=== PATIENT | male | born 1990 ===

== ENCOUNTER 2017-05-07 20:16 | Observation (INO) | payer OTHER ==
[2017-05-07] MEDS ORDERED: Sodium Chloride 0.9% 1,000 ML IV STA (20:34)
[2017-05-07] MEDS ORDERED: HYDROmorphone 0.5 mg/0.5 ml ISec IVP STA (20:34)
--- NOTE | 2017-05-07 20:39 | ED PDOC ---
Arrival/HPI - General Chief Complaint: Male Genitourinary Time Seen by Provider: 05/07/17 20:28 Historian: Patient - History of Present Illness Narrative History of Present Illness (Text): 05/07/17 20:37 Patient to ED PMHX kidney stones with c/o abrupt onset right flank pain tonight associated with some nausea.No fever or chills.No diarrhea.No difficulty urinating.No dysuria. Past Medical History - Provider Review Nursing Documentation Reviewed: Yes - Travel History Have you recently traveled outside [place] w/in the past 3 mons?: No - Infectious Disease Hx of Infectious Diseases: None - Tetanus Immunization Tetanus Immunization: Unknown - Past Medical History Past Medical History: No Previous - Cardiac Hx Cardiac Disorders: No - Pulmonary Hx Respiratory Disorders: No - Neurological Hx Neurological Disorder: No - HEENT Hx HEENT Disorder: No - Renal Hx Renal Disorder: Yes Hx Kidney Stones: Yes - Endocrine/Metabolic Hx Endocrine Disorders: No - Hematological/Oncological Hx Blood Disorders: No - Integumentary Hx Dermatological Disorder: No - Musculoskeletal/Rheumatological Hx Musculoskeletal Disorders: No - Gastrointestinal Hx Gastrointestinal Disorders: No - Genitourinary/Gynecological Hx Genitourinary Disorders: No - Psychiatric Hx Psychophysiologic Disorder: No Hx Substance Use: No - Past Surgical History Past Surgical History: No Previous - Anesthesia Hx Anesthesia: No - Suicidal Assessment Feels Threatened In Home Enviroment: No Family/Social History - Physician Review Nursing Documentation Reviewed: Yes Family/Social History: No Known Family HX Smoking Status: Heavy Smoker > 10 Cigarettes Daily Hx Alcohol Use: Yes Hx Substance Use: No Hx Substance Use Treatment: No Allergies/Home Meds Allergies/Adverse Reactions: Allergies No Known Allergies Allergy (Verified 09/23/15 01:53) Home Medications: Home Meds Medication Instructions Recorded Confirmed No Known Home Med 09/23/15 05/07/17 Review of Systems - Review of Systems Constitutional: Normal Eyes: Normal ENT: Normal Respiratory: Normal Cardiovascular: Normal Gastrointestinal: Normal Genitourinary Male: Normal Musculoskeletal: Normal Skin: Normal Neurological: Normal Endocrine: Normal Hemo/Lymphatic: Normal Psychiatric: Normal Physical Exam Vital Signs Temp Pulse Resp BP Pulse Ox 05/07/17 22:08 51 L 18 152/95 H 99 05/07/17 20:27 97.4 F L 54 L 19 176/83 H 94 L Temperature: Afebrile Blood Pressure: Normal Pulse: Regular Respiratory Rate: Normal Appearance: Positive for: Well-Appearing, Non-Toxic, Uncomfortable Pain Distress: None Mental Status: Positive for: Alert and Oriented X 3 - Systems Exam Head: Present: Atraumatic, Normocephalic Pupils: Present: PERRL Extroacular Muscles: Present: EOMI Conjunctiva: Present: Normal Mouth: Present: Moist Mucous Membranes Pharnyx: Present: Normal Neck: Present: Normal Range of Motion Respiratory/Chest: Present: Clear to Auscultation, Good Air Exchange. No: Respiratory Distress, Accessory Muscle Use Cardiovascular: Present: Regular Rate and Rhythm, Normal S1, S2. No: Murmurs Abdomen: Present: Normal Bowel Sounds. No: Tenderness, Distention, Peritoneal Signs Back: Present: Normal Inspection, CVA Tenderness (right) Upper Extremity: Present: Normal Inspection. No: Cyanosis, Edema Lower Extremity: Present: Normal Inspection. No: Edema Neurological: Present: GCS=15, CN II-XII Intact, Speech Normal, Motor Func Grossly Intact, Normal Sensory Function Skin: Present: Warm, Dry, Normal Color. No: Rashes Psychiatric: Present: Alert, Oriented x 3, Normal Insight, Normal Concentration Medical Decision Making ED Course and Treatment: 05/07/17 22:10 CT Abdomen and Pelvis shows: Lower thorax: Heart size normal. Lung bases are clear ABDOMEN: Liver: unremarkable Gallbladder and bile ducts: unremarkable Pancreas: unremarkable Spleen: unremarkable Adrenals: unremarkable Kidneys and ureters: There is focal left renal scarring. Left kidney and ureter are otherwise unremarkable. There are nonobstructing right renal stones.There is obstructive uropathy on the right. There is a 3 mm stone at the right ureterovesical junction. Stomach and bowel: Stomach is partially distended. Rotation is normal. There are mildly distended small bowel loops. There is no obstruction. Ileocecal region is unremarkable. Appendix and terminal ileum are unremarkable. Colon is incompletely distended which limits evaluation. There is scattered diverticulosis Appendix: See stomach and bowel PELVIS: Bladder: unremarkable Reproductive: Seminal vesicles and prostate are unremarkable. ABDOMEN and PELVIS: Intraperitoneal space: There is no free air or free fluid. Bones/joints: There is a mild convex left lumbar curve. Bony structures are otherwise unremarkable. Soft tissues: There is minimal gynecomastia. Vasculature: Vascular structures are unremarkable. Lymph nodes: There is no pathologic adenopathy. IMPRESSION: 3 mm obstructing stone right ureterovesical junction; tiny nonobstructing right renal stones Additional nonemergent findings as described above. 05/07/17 22:16 Case discussed with medical surgical tech assistant professor of communication, who is aware and agrees with plan. 05/07/17 22:[address] Kwan, who is aware and agrees with plan. Accepts pt in to hospitalist service. Pt will go to [facility] observation for renal colic and intractable pain. - Lab Interpretations Lab Results: 05/07/17 20:40 05/07/17 20:40 Lab Results 05/07/17 20:40: WBC 16.0 H D, RBC 5.06, Hgb 15.2, Hct 42.4, MCV 83.8, MCH 30.0, MCHC 35.8, RDW 13.5, Plt Count 317, MPV 8.6 05/07/17 20:40: Sodium 139, Potassium 3.7, Chloride 105, Carbon Dioxide 21, Anion Gap 17, BUN 13, Creatinine 0.9, Est GFR ( Amer) > 60, Est GFR (Non- Af Amer) > 60, Random Glucose 121 H, Calcium 9.8, Total Bilirubin 0.7, AST 23, ALT 25, Alkaline Phosphatase 92, Total Protein 7.2, Albumin 4.3, Globulin 3.0, Albumin/Globulin Ratio 1.4, Lipase 38 I have reviewed the lab results: Yes - RAD Interpretation Radiology Orders: 05/07/17 20:35 ABD & PELVIS W/O PO OR IV CONT [CT] Stat Hardware Technician: Radiologist - Medication Orders Current Medication Orders: Discontinued Medications Hydromorphone HCl (Dilaudid) 1 mg IVP STAT STA Stop: 05/07/17 20:35 Last Admin: 05/07/17 20:41 Dose: 1 mg MAR Pain Assessment Document 05/07/17 20:41 IT (Rec: 05/07/17 20:41 IT [facility] [id number] Pain Reassessment Is this a pain reassessment? No Sleep Is patient sleeping during reassessment? No Presence of Pain Presence of Pain Yes Pain Scale Used Pain Scale Used Numeric Description Intensity of Pain at present 9 IVP Administration Document 05/07/17 20:41 IT (Rec: 05/07/17 20:41 IT [facility] [id number]) Charges for Administration # of IVP Administrations 1 Sodium Chloride (Sodium Chloride 0.9%) 1,000 mls @ 999 mls/hr IV .Q1H1M STA Stop: 05/07/17 21:34 Last Admin: 05/07/17 20:41 Dose: 999 mls/hr eMAR Start Stop Document 05/07/17 20:41 IT (Rec: 05/07/17 20:41 IT [facility] [id number]) Intravenous Solution Start Date 05/07/17 Start Time 20:41 Ketorolac Tromethamine (Toradol) 30 mg IVP ONCE ONE Stop: 05/07/17 22:11 Last Admin: 05/07/17 22:22 Dose: 30 mg MAR Pain Assessment Document 05/07/17 22:22 IT (Rec: 05/07/17 22:23 IT [facility] [id number][place] Pain Reassessment Is this a pain reassessment? No Sleep Is patient sleeping during reassessment? No Presence of Pain Presence of Pain Yes IVP Administration Document 05/07/17 22:22 IT (Rec: 05/07/17 22:23 IT [facility] [id number]) Charges for Administration # of IVP Administrations 1 Ondansetron HCl (Zofran Inj) 4 mg IVP ONCE ONE Stop: 05/07/17 20:35 Last Admin: 05/07/17 20:41 Dose: 4 mg IVP Administration Document 05/07/17 20:41 IT (Rec: 05/07/17 20:41 IT [facility] [id number]) Charges for Administration # of IVP Administrations 1 Disposition/Present on Arrival - Present on Arrival Any Indicators Present on Arrival: No History of DVT/PE: No History of Uncontrolled Diabetes: No Urinary Catheter: No History of Decub. Ulcer: No History Surgical Site Infection Following: None - Disposition Have Diagnosis and Disposition been Completed?: Yes Diagnosis: Renal colic, Intractable pain Disposition: HOSPITALIZED Disposition Time: 22:40 Patient Problems: Current Active Problems Problem Status Onset Intractable pain Acute Renal colic Acute Condition: STABLE Referrals: Charles Mcadams MD [Primary Care Provider] - Follow up with primary Forms: [facility] ([place])
[2017-05-07 20:51] LABS: HEMOGLOBIN 15.2 g/dL (14.0-18.0); MEAN CELL VOLUME 83.8 fl (80.0-105.0); MEAN CORPUSCULAR HGB CONC 35.8 g/dl (31.0-37.0); MEAN PLATELET VOLUME 8.6 fl (7.0-11.0); RBC 5.06 10^6/uL (3.5-6.1); RED CELL DISTRIBUTION WIDTH 13.5 % (11.5-14.5)
[2017-05-07 21:03] LABS: ALB/GLOB RATIO 1.4 (1.1-1.8); ALBUMIN 4.3 g/dL (3.0-4.8); ALT/SGPT 25 U/L (7-56); AST/SGOT 23 U/L (17-59); BLOOD UREA NITROGEN 13 mg/dL (7-21); CALCIUM 9.8 mg/dL (8.4-10.5); GFR AFRICAN-AMERICAN > 60; GFR NON-AFRICAN AMERICAN > 60; LIPASE 38 U/L (23-300)
--- NOTE | 2017-05-07 22:08 | CT ---
EXAM: CT Abdomen and Pelvis Without Intravenous Contrast EXAM DATE/TIME: 05/07/2017 8:35 PM CLINICAL HISTORY: 27 years old, male; Pain; Abdominal pain; Flank; Right; Additional info: Right flank pain TECHNIQUE: Axial computed tomography images of the abdomen and pelvis without intravenous contrast. All CT scans at this facility use one or more dose reduction techniques, viz.: automated exposure control; ma/kV adjustment per patient size (including targeted exams where dose is matched to indication; i.e. head); or iterative reconstruction technique. Coronal and sagittal reformatted images were created and reviewed. COMPARISON: CT - CHEST,ABD,PEL W/IV CONT ONLY 2015-09-23 03:55 FINDINGS: Lower thorax: Heart size normal. Lung bases are clear ABDOMEN: Liver: unremarkable Gallbladder and bile ducts: unremarkable Pancreas: unremarkable Spleen: unremarkable Adrenals: unremarkable Kidneys and ureters: There is focal left renal scarring. Left kidney and ureter are otherwise unremarkable. There are nonobstructing right renal stones.There is obstructive uropathy on the right. There is a 3 mm stone at the right ureterovesical junction. Stomach and bowel: Stomach is partially distended. Rotation is normal. There are mildly distended small bowel loops. There is no obstruction. Ileocecal region is unremarkable. Appendix and terminal ileum are unremarkable. Colon is incompletely distended which limits evaluation. There is scattered diverticulosis Appendix: See stomach and bowel PELVIS: Bladder: unremarkable Reproductive: Seminal vesicles and prostate are unremarkable. ABDOMEN and PELVIS: Intraperitoneal space: There is no free air or free fluid. Bones/joints: There is a mild convex left lumbar curve. Bony structures are otherwise unremarkable. Soft tissues: There is minimal gynecomastia. Vasculature: Vascular structures are unremarkable. Lymph nodes: There is no pathologic adenopathy. IMPRESSION: 3 mm obstructing stone right ureterovesical junction; tiny nonobstructing right renal stones Additional nonemergent findings as described above.
[2017-05-07] MEDS: Sodium Chloride 0.9% 1,000 ML IV SCH (23:08)
[2017-05-07 23:14] LABS: TROPONIN I < 0.01 ng/mL
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
[2017-05-08 00:17] VITALS: BMI 25.7
[2017-05-08] MEDS: Morphine 2 mg/ml ISec IVP PRN ×4 (01:08→21:34)
[2017-05-08 03:06] LABS: URINE APPEARANCE CLEAR (CLEAR); URINE BILIRUBIN NEGATIVE (NEGATIVE); URINE BLOOD SMALL (NEGATIVE); URINE COLOR YELLOW (YELLOW); URINE GLUCOSE (UA) NEGATIVE (NEGATIVE); URINE LEUKOCYTE ESTERASE NEGATIVE Leu/uL (NEGATIVE); URINE PROTEIN NEGATIVE mg/dL (<30 mg/dL); URINE UROBILINOGEN 0.2 E.U./dL (<1 E.U./dL)
[2017-05-08 04:11] LABS: URINE EPITHELIAL CELLS 0 - 2 /hpf (0-5); URINE WBC 0 - 2 /hpf (0-6)
[2017-05-08] MEDS: Pantoprazole 40 mg EC Tab PO SCH (06:06)
[2017-05-08] MEDS: Sodium Chloride 0.9% 1,000 ML IV SCH ×3 (06:07→20:37)
[2017-05-08 07:19] LABS: HEMOGLOBIN 14.8 g/dL (14.0-18.0); MEAN CELL VOLUME 84.9 fl (80.0-105.0); MEAN CORPUSCULAR HEMOGLOBIN 29.7 pg (25.0-35.0); MEAN PLATELET VOLUME 8.6 fl (7.0-11.0); RBC 4.98 10^6/uL (3.5-6.1); RED CELL DISTRIBUTION WIDTH 13.7 % (11.5-14.5); WHITE BLOOD COUNT 12.4 10^3/ul (4.5-11.0)
[2017-05-08 07:59] LABS: ALB/GLOB RATIO 1.3 (1.1-1.8); ALBUMIN 3.7 g/dL (3.0-4.8); ALT/SGPT 25 U/L (7-56); AST/SGOT 30 U/L (17-59); BLOOD UREA NITROGEN 13 mg/dL (7-21); CALCIUM 9.3 mg/dL (8.4-10.5); GFR AFRICAN-AMERICAN > 60; GFR NON-AFRICAN AMERICAN > 60
--- NOTE | 2017-05-08 10:39 | CARD ---
APPROVED REPORT EKG Measurement Heart [id number] [place] [id number] <Conclusion> Marked sinus bradycardia Early repolarization
[2017-05-09] MEDS: Sodium Chloride 0.9% 1,000 ML IV SCH ×3 (02:31→22:19)
[2017-05-09] MEDS: Pantoprazole 40 mg EC Tab PO SCH (05:07)
[2017-05-09] MEDS: Morphine 2 mg/ml ISec IVP PRN ×3 (05:58→22:49)
[2017-05-09 09:34] LABS: HEMOGLOBIN 14.1 g/dL (14.0-18.0); MEAN CELL VOLUME 85.3 fl (80.0-105.0); MEAN CORPUSCULAR HEMOGLOBIN 29.6 pg (25.0-35.0); MEAN CORPUSCULAR HGB CONC 34.7 g/dl (31.0-37.0); MEAN PLATELET VOLUME 8.6 fl (7.0-11.0); RBC 4.76 10^6/uL (3.5-6.1); RED CELL DISTRIBUTION WIDTH 13.6 % (11.5-14.5); WHITE BLOOD COUNT 10.7 10^3/ul (4.5-11.0)
--- NOTE | 2017-05-09 10:49 | CP.PCM.PN ---
<Christiano Quintero - Last Filed: 05/09/17 10:46> Subjective - Date & Time of Evaluation Date of Evaluation: 05/09/17 Time of Evaluation: 10:47 - Subjective Subjective: Medicine Progress Note: Patient seen and assessed at bedside. Patient reports that he had a few episodes requiring PRN pain medication which he reports relieved his symptoms. He denies any passing of stones that he is aware of. He otherwise denies any fever, chills, headache, chest pain, SOB, cough, abdominal pain, N/V/D/C, urinary symptoms, any new skin changes or any numbness/tingling/weakness of any extremity. Objective - Vital Signs/Intake and Output Vital Signs (last 24 hours): Temp Pulse Resp BP Pulse Ox 98.2 F 59 L 22 147/94 H 97 05/09/17 08:00 05/09/17 08:00 05/09/17 08:00 05/09/17 08:00 05/09/17 08:00 Intake and Output: 05/09/17 05/09/17 06:59 18:59 Intake Total 2760 Balance 2760 - Medications Medications: Current Medications Acetaminophen (Tylenol 325mg Tab) 650 mg PO Q4 PRN PRN Reason: Pain, Mild (1-3) Docusate Sodium (Colace) 100 mg PO DAILY [facility] Last Admin: 05/09/17 10:00 Dose: Not Given Sodium Chloride (Sodium Chloride 0.9%) 1,000 mls @ 150 mls/hr IV .Q6H40M [facility] Last Admin: 05/09/17 10:00 Dose: 150 mls/hr Ketorolac Tromethamine (Toradol) 15 mg IVP Q6 PRN PRN Reason: Pain, moderate (4-7) Last Admin: 05/09/17 04:20 Dose: 15 mg Morphine Sulfate (Morphine) 2 mg IVP Q4H PRN PRN Reason: Pain, severe (8-10) Last Admin: 05/09/17 05:58 Dose: 2 mg Nicotine (Nicoderm Cq) 1 patch TD DAILY PRN PRN Reason: URGE TO SMOKE Ondansetron HCl (Zofran Inj) 4 mg IVP Q4H PRN PRN Reason: Nausea/Vomiting Last Admin: 05/09/17 06:00 Dose: 4 mg Pantoprazole Sodium (Protonix Ec Tab) 40 mg PO 0600 [facility] Last Admin: 05/09/17 05:07 Dose: 40 mg Tamsulosin HCl (Flomax) 0.4 mg PO DAILY [facility] Last Admin: 05/09/17 10:00 Dose: Not Given - Labs Labs: 05/09/17 09:16 05/08/17 06:30 - Constitutional Appears: Non-toxic, No Acute Distress - Head Exam Head Exam: ATRAUMATIC, NORMOCEPHALIC - Eye Exam Eye Exam: EOMI, Normal appearance Pupil Exam: NORMAL ACCOMODATION, PERRL - ENT Exam ENT Exam: Mucous Membranes Moist, Normal Exam - Neck Exam Neck Exam: Full ROM, Normal Inspection. absent: Lymphadenopathy, Tenderness - Respiratory Exam Respiratory Exam: Clear to Ausculation Bilateral, NORMAL BREATHING PATTERN - Cardiovascular Exam Cardiovascular Exam: Bradycardia, REGULAR RHYTHM, +S1, +S2. absent: Tachycardia , Clicks, Diastolic murmur, Gallop, Irregular Rhythm, JVD, RRR, Rubs, +S4, Murmur - GI/Abdominal Exam GI & Abdominal Exam: Soft, Normal Bowel Sounds. absent: Distended, Firm, Guarding, Rigid, Tenderness, Rebound - Extremities Exam Extremities Exam: Full ROM, Normal Capillary Refill, Normal Inspection, Tenderness. absent: Calf Tenderness, Joint Swelling, Pedal Edema - Back Exam Back Exam: CVA tenderness (R). absent: CVA tenderness (L), Full ROM, muscle spasm, NORMAL INSPECTION, paraspinal tenderness, rash noted, vertebral tenderness - Neurological Exam Neurological Exam: Alert, Awake, CN II-XII Intact, Normal Gait, Oriented x3 - Psychiatric Exam Psychiatric exam: Normal Affect, Normal Mood - Skin Skin Exam: Dry, Intact, Normal Color, Warm Assessment and Plan - Assessment and Plan (Free Text) Assessment: 27 year old with a past medical history significant for nephrolithiasis who presented with right sided abdominal and flank pain with associated nausea/ vomiting and fevers/chills. A CT abdomen/pelvis showed a 3mm obstructing stone in the right ureterovesical junction as well as other tiny nonobstructing right renal stones and left renal scarring. Patient noted to be bradycardic on presentation with EKG showing sinus bradycardia. Plan: 1. Nephrolithiasis -CT abdomen/pelvis showed a 3mm obstructing stone in the right ureterovesical junction as well as other tiny nonobstructing right renal stones and left renal scarring -Noted to have resolved leukocytosis and without fevers, tachypnea or tachycardia -Continue normal saline at 150mls/hr -Continue flomax -Continue morphine and toradol as needed for pain control -Continue tylenol as needed for fevers -Continue zofran as needed for N/V -Continue straining urine -NPO for possible urological procedure -Urology consulted, all recommendations appreciated 2. Asymptomatic Bradycardia -EKG showed sinus bradycardia at 41 beats/min -TSH low at 0.44 -Free T4 pending -Continue to monitor with VS Q4H 3. History of Tobacco Abuse -Continue Nicoderm CQ GI Prophylaxis: Protonix DVT Prophylaxis: SCD's Patient seen and case discussed with attending, Dr. Garnica. <Parmjit Garnica - Last Filed: 05/09/17 14:56> Objective - Vital Signs/Intake and Output Vital Signs (last 24 hours): Temp Pulse Resp BP Pulse Ox 97.9 F 80 18 134/87 98 05/09/17 13:40 05/09/17 13:40 05/09/17 13:40 05/09/17 13:40 05/09/17 13:40 Intake and Output: 05/09/17 05/09/17 06:59 18:59 Intake Total 2760 Balance 2760 - Medications Medications: Current Medications Acetaminophen (Tylenol 325mg Tab) 650 mg PO Q4 PRN PRN Reason: Pain, Mild (1-3) Docusate Sodium (Colace) 100 mg PO DAILY [facility] Last Admin: 05/09/17 10:00 Dose: Not Given Sodium Chloride (Sodium Chloride 0.9%) 1,000 mls @ 150 mls/hr IV .Q6H40M [facility] Last Admin: 05/09/17 10:00 Dose: 150 mls/hr Lactated Ringer's (Lactated Ringer's) 1,000 mls @ 75 mls/hr IV .[id number] [facility] Stop: 05/09/17 15:46 Ketorolac Tromethamine (Toradol) 15 mg IVP Q6 PRN PRN Reason: Pain, moderate (4-7) Last Admin: 05/09/17 04:20 Dose: 15 mg Morphine Sulfate (Morphine) 2 mg IVP Q4H PRN PRN Reason: Pain, severe (8-10) Last Admin: 05/09/17 05:58 Dose: 2 mg Nicotine (Nicoderm Cq) 1 patch TD DAILY PRN PRN Reason: URGE TO SMOKE Ondansetron HCl (Zofran Inj) 4 mg IVP Q4H PRN PRN Reason: Nausea/Vomiting Last Admin: 05/09/17 12:42 Dose: 4 mg Pantoprazole Sodium (Protonix Ec Tab) 40 mg PO 0600 [facility] Last Admin: 05/09/17 05:07 Dose: 40 mg Tamsulosin HCl (Flomax) 0.4 mg PO DAILY [facility] Last Admin: 05/09/17 10:00 Dose: Not Given - Labs Labs: 05/09/17 09:16 05/09/17 09:16 Attending/Attestation - Attestation I have personally seen and examined this patient.: Yes I have fully participated in the care of the patient.: Yes I have reviewed all pertinent clinical information, including history, physical exam and plan: Yes Notes (Text): 05/09/17 14:54 attending note; Patient seen and examined with resident. Patient is a 27-year-old male admitted with right-sided abdominal pain and flank pain. Found to have 3 mm obstructive stone in the right UVJ with hydronephrosis. Plan for ureteral stent placement today. continue IV fluids, IV morphine and Flomax. upon discharge patient will follow-up with PMD .
[2017-05-09 12:15] LABS: ALB/GLOB RATIO 1.2 (1.1-1.8); ALBUMIN 3.4 g/dL (3.0-4.8); ALT/SGPT 24 U/L (7-56); AST/SGOT 23 U/L (17-59); BLOOD UREA NITROGEN 11 mg/dL (7-21); CALCIUM 8.9 mg/dL (8.4-10.5); GFR AFRICAN-AMERICAN > 60; GFR NON-AFRICAN AMERICAN > 60
[2017-05-09] MEDS ORDERED: Lactated Ringer's 1,000 ML IV SCH ×2 (13:45→15:45)
[2017-05-09] MEDS ORDERED: cefTRIAXone (Rocephin) 1 gm Inj ONE (15:33)
[2017-05-09] MEDS ORDERED: Lidocaine 2% Jelly (Uro-Jet) ONE (15:33)
[2017-05-09] MEDS ORDERED: Iohexol 240 (50 ml) ONE (15:34)
[2017-05-09] MEDS ORDERED: Morphine 2 mg/ml ISec IVP PRN (15:35)
[2017-05-09] MEDS ORDERED: Midazolam 2 MG/2 ML VIAL ONE (15:45)
[2017-05-09] MEDS ORDERED: Propofol 10 mg/ml Inj (20 ML) ONE (15:45)
[2017-05-10] MEDS: Morphine 2 mg/ml ISec IVP PRN ×2 (03:19→11:36)
[2017-05-10] MEDS: Sodium Chloride 0.9% 1,000 ML IV SCH (05:01)
[2017-05-10] MEDS: Pantoprazole 40 mg EC Tab PO SCH (05:01)
[2017-05-10 07:05] LABS: ALB/GLOB RATIO 1.2 (1.1-1.8); ALBUMIN 3.4 g/dL (3.0-4.8); ALT/SGPT 20 U/L (7-56); AST/SGOT 27 U/L (17-59); BLOOD UREA NITROGEN 9 mg/dL (7-21); CALCIUM 9.2 mg/dL (8.4-10.5); GFR AFRICAN-AMERICAN > 60; GFR NON-AFRICAN AMERICAN > 60
[2017-05-10 07:06] LABS: HEMOGLOBIN 14.1 g/dL (14.0-18.0); MEAN CORPUSCULAR HEMOGLOBIN 29.4 pg (25.0-35.0); MEAN CORPUSCULAR HGB CONC 34.6 g/dl (31.0-37.0); MEAN PLATELET VOLUME 8.7 fl (7.0-11.0); RBC 4.79 10^6/uL (3.5-6.1); RED CELL DISTRIBUTION WIDTH 13.6 % (11.5-14.5)
--- NOTE | 2017-05-10 10:00 | RAD ---
PROCEDURE: Intraoperative Fluoroscopy. HISTORY: R/O STONES, STENT INSERTION FINDINGS: Fluoroscopic assistance was provided for ureteral stent insertion. Please refer to the operative report from LEO Henning, , MD [place]. 17 seconds of partially to we time was utilized with a cumulative radiation dose of 0 point 03/06/2001 mGym2.
[2017-05-10 17:26] VITALS: BP 134/83; PULSE 68; RESP 18; TEMP 98.3; O2SAT 97
--- NOTE | 2017-05-12 15:12 | CP.PCM.DIS ---
<Christiano Quintero - Last Filed: 05/12/17 15:06> Provider - Provider Date of Admission: 05/07/17 22:37 Attending physician: Parmjit Garnica MD Primary care physician: Charles Mcadams MD Consults: Urology: Louisa Time Spent in preparation of Discharge (in minutes): 41 Diagnosis - Discharge Diagnosis (1) Nephrolithiasis Status: Acute (2) Renal colic Status: Acute Hospital Course - Lab Results Lab Results: Most Recent Lab Values WBC 9.0 10^3/ul (4.5-11.0) 05/10/17 06:00 RBC 4.79 10^6/uL (3.5-6.1) 05/10/17 06:00 Hgb 14.1 g/dL (14.0-18.0) 05/10/17 06:00 Hct 40.7 % (42.0-52.0) L 05/10/17 06:00 MCV 85.0 fl (80.0-105.0) 05/10/17 06:00 MCH 29.4 pg (25.0-35.0) 05/10/17 06:00 MCHC 34.6 g/dl (31.0-37.0) 05/10/17 06:00 RDW 13.6 % (11.5-14.5) 05/10/17 06:00 Plt Count 264 10^3/uL (120.0-450.0) 05/10/17 06:00 MPV 8.7 fl (7.0-11.0) 05/10/17 06:00 Sodium 138 mmol/L (132-148) 05/10/17 06:00 Potassium 3.6 mmol/L (3.6-5.0) 05/10/17 06:00 Chloride 104 mmol/L (98-107) 05/10/17 06:00 Carbon Dioxide 25 mmol/L (21-33) 05/10/17 06:00 Anion Gap 12 (10-20) 05/10/17 06:00 BUN 9 mg/dL (7-21) 05/10/17 06:00 Creatinine 0.8 mg/dl (0.8-1.5) 05/10/17 06:00 Est GFR ( Amer) > 60 05/10/17 06:00 Est GFR (Non-Af Amer) > 60 05/10/17 06:00 Random Glucose 90 mg/dL (70-110) 05/10/17 06:00 Calcium 9.2 mg/dL (8.4-10.5) 05/10/17 06:00 Phosphorus 4.3 mg/dL (2.5-4.5) 05/07/17 20:40 Magnesium 2.2 mg/dL (1.7-2.2) 05/07/17 20:40 Total Bilirubin 0.9 mg/dL (0.2-1.3) 05/10/17 06:00 AST 27 U/L (17-59) 05/10/17 06:00 ALT 20 U/L (7-56) 05/10/17 06:00 Alkaline Phosphatase 64 U/L (38-126) 05/10/17 06:00 Lactate Dehydrogenase 567 U/L (333-699) 05/07/17 20:40 Total Creatine Kinase 140 U/L (35-230) 05/07/17 20:40 Troponin I < 0.01 ng/mL 05/07/17 20:40 Total Protein 6.3 g/dL (5.8-8.3) 05/10/17 06:00 Albumin 3.4 g/dL (3.0-4.8) 05/10/17 06:00 Globulin 2.9 gm/dL 05/10/17 06:00 Albumin/Globulin Ratio 1.2 (1.1-1.8) 05/10/17 06:00 Lipase 38 U/L (23-300) 05/07/17 20:40 Free T4 0.96 ng/dL (0.78-2.19) 05/09/17 09:15 TSH 3rd Generation 0.44 mIU/mL (0.46-4.68) L 05/08/17 06:30 Urine Color Yellow (YELLOW) 05/08/17 02:45 Urine Appearance Clear (CLEAR) 05/08/17 02:45 Urine pH 7.0 (4.7-8.0) 05/08/17 02:45 Ur Specific [place] 1.025 (1.005-1.035) 05/08/17 02:45 Urine Protein Negative mg/dL (<30 mg/dL) 03/22/18 02:45 Urine Glucose (UA) Negative mg/dL (NEGATIVE) 05/08/17 02:45 Urine Ketones 40 mg/dL (NEGATIVE) H 05/08/17 02:45 Urine Blood Small (NEGATIVE) H 05/08/17 02:45 Urine Nitrate Negative (NEGATIVE) 05/08/17 02:45 Urine Bilirubin Negative (NEGATIVE) 05/08/17 02:45 Urine Urobilinogen 0.2 E.U./dL (<1 E.U./dL) 05/08/17 02:45 Ur Leukocyte Esterase Negative New/uL (NEGATIVE) 05/08/17 02:45 Urine RBC 2 - 5 /hpf (0-2) 05/08/17 02:45 Urine WBC 0 - 2 /hpf (0-6) 05/08/17 02:45 Ur Epithelial Cells 0 - 2 /hpf (0-5) 05/08/17 02:45 - Hospital Course Hospital Course: 27 year old with a past medical history significant for nephrolithiasis who presented with right sided abdominal and flank pain with associated nausea/ vomiting and fevers/chills. A CT abdomen/pelvis showed a 3mm obstructing stone in the right ureterovesical junction as well as other tiny nonobstructing right renal stones and left renal scarring. Urology was consulted. Patient noted to have leukocytosis on admission that resolved and he had no other SIRS or sepsis criteria throughout admission. He was started on morphine and toradol for pain control. He was started on IVF and flomax. His voids were strained. Urology put a right ureteral stent in patient with instructions for self removal at home after discharge. Patient noted to be bradycardic on presentation with EKG showing sinus bradycardia. TSH was low but free T4 was negative. He was given Nicoderm CQ for tobacco abuse. He was discharged on 05/10/17 with follow up with Dr. Jasso and with the following instructions: Please follow up with your primary care doctor within one to two weeks Please take all medications as prescribed If your symptoms worsen or persist, please seek emergency medical attention - Date & Time of H&P Date of H&P: 05/08/17 Time of H&P: 00:02 Discharge Exam - Head Exam Head Exam: ATRAUMATIC, NORMOCEPHALIC - Eye Exam Eye Exam: EOMI, Normal appearance, PERRL - Respiratory Exam Respiratory Exam: Clear to PA & Lateral, NORMAL BREATHING PATTERN, UNREMARKABLE - Cardiovascular Exam Cardiovascular Exam: REGULAR RHYTHM - GI/Abdominal Exam GI & Abdominal Exam: Normal Bowel Sounds, Unremarkable - Back Exam Back exam: CVA tenderness (R), FULL ROM. absent: CVA tenderness (L) - Neurological Exam Neurological exam: Alert, CN II-XII Intact, Normal Gait, Oriented x3, Reflexes Normal - Psychiatric Exam Psychiatric exam: Normal Affect, Normal Mood - Skin Skin Exam: Dry, Intact, Normal Color, Warm Discharge Plan - Discharge Medications Prescriptions: Levofloxacin [Levaquin] 500 mg PO DAILY #3 tablet Phenazopyridine [Pyridium] 200 mg PO BID 5 Days #10 tab Tamsulosin [Flomax] 0.4 mg PO DAILY #10 cap - Follow Up Plan Condition: STABLE Disposition: HOME/ ROUTINE Instructions: Smoking: Not Just Harmful to Your Lungs and Heart, Flank Pain (DC ), Renal Colic (DC) Additional Instructions: Please follow up with your primary care doctor within one to two weeks Please take all medications as prescribed If your symptoms worsen or persist, please seek emergency medical attention Referrals: Charles Mcadams MD [Primary Care Provider] - Darci Jasso MD [Staff Provider] - <Parmjit Garnica - Last Filed: 05/19/17 14:00> Provider - Provider Date of Admission: 05/07/17 22:37 Attending physician: Parmjit Garnica MD Primary care physician: Charles Mcadams MD Hospital Course - Lab Results Lab Results: Most Recent Lab Values WBC 9.0 10^3/ul (4.5-11.0) 05/10/17 06:00 RBC 4.79 10^6/uL (3.5-6.1) 05/10/17 06:00 Hgb 14.1 g/dL (14.0-18.0) 05/10/17 06:00 Hct 40.7 % (42.0-52.0) L 05/10/17 06:00 MCV 85.0 fl (80.0-105.0) 05/10/17 06:00 MCH 29.4 pg (25.0-35.0) 05/10/17 06:00 MCHC 34.6 g/dl (31.0-37.0) 05/10/17 06:00 RDW 13.6 % (11.5-14.5) 05/10/17 06:00 Plt Count 264 10^3/uL (120.0-450.0) 05/10/17 06:00 MPV 8.7 fl (7.0-11.0) 05/10/17 06:00 Sodium 138 mmol/L (132-148) 05/10/17 06:00 Potassium 3.6 mmol/L (3.6-5.0) 05/10/17 06:00 Chloride 104 mmol/L (98-107) 05/10/17 06:00 Carbon Dioxide 25 mmol/L (21-33) 05/10/17 06:00 Anion Gap 12 (10-20) 05/10/17 06:00 BUN 9 mg/dL (7-21) 05/10/17 06:00 Creatinine 0.8 mg/dl (0.8-1.5) 05/10/17 06:00 Est GFR ( Amer) > 60 05/10/17 06:00 Est GFR (Non-Af Amer) > 60 05/10/17 06:00 Random Glucose 90 mg/dL (70-110) 05/10/17 06:00 Calcium 9.2 mg/dL (8.4-10.5) 05/10/17 06:00 Phosphorus 4.3 mg/dL (2.5-4.5) 05/07/17 20:40 Magnesium 2.2 mg/dL (1.7-2.2) 05/07/17 20:40 Total Bilirubin 0.9 mg/dL (0.2-1.3) 05/10/17 06:00 AST 27 U/L (17-59) 05/10/17 06:00 ALT 20 U/L (7-56) 05/10/17 06:00 Alkaline Phosphatase 64 U/L (38-126) 05/10/17 06:00 Lactate Dehydrogenase 567 U/L (333-699) 05/07/17 20:40 Total Creatine Kinase 140 U/L (35-230) 05/07/17 20:40 Troponin I < 0.01 ng/mL 05/07/17 20:40 Total Protein 6.3 g/dL (5.8-8.3) 05/10/17 06:00 Albumin 3.4 g/dL (3.0-4.8) 05/10/17 06:00 Globulin 2.9 gm/dL 05/10/17 06:00 Albumin/Globulin Ratio 1.2 (1.1-1.8) 05/10/17 06:00 Lipase 38 U/L (23-300) 05/07/17 20:40 Free T4 0.96 ng/dL (0.78-2.19) 05/09/17 09:15 TSH 3rd Generation 0.44 mIU/mL (0.46-4.68) L 05/08/17 06:30 Urine Color Yellow (YELLOW) 05/08/17 02:45 Urine Appearance Clear (CLEAR) 05/08/17 02:45 Urine pH 7.0 (4.7-8.0) 05/08/17 02:45 Ur Specific [place] 1.025 (1.005-1.035) 05/08/17 02:45 Urine Protein Negative mg/dL (<30 mg/dL) 05/08/17 02:45 Urine Glucose (UA) Negative mg/dL (NEGATIVE) 05/08/17 02:45 Urine Ketones 40 mg/dL (NEGATIVE) H 05/08/17 02:45 Urine Blood Small (NEGATIVE) H 05/08/17 02:45 Urine Nitrate Negative (NEGATIVE) 05/08/17 02:45 Urine Bilirubin Negative (NEGATIVE) 05/08/17 02:45 Urine Urobilinogen 0.2 E.U./dL (<1 E.U./dL) 05/08/17 02:45 Ur Leukocyte Esterase Negative New/uL (NEGATIVE) 05/08/17 02:45 Urine RBC 2 - 5 /hpf (0-2) 05/08/17 02:45 Urine WBC 0 - 2 /hpf (0-6) 05/08/17 02:45 Ur Epithelial Cells 0 - 2 /hpf (0-5) 05/08/17 02:45 Attending/Attestation - Attestation I have personally seen and examined this patient.: Yes I have fully participated in the care of the patient.: Yes I have reviewed all pertinent clinical information, including history, physical exam and plan: Yes Notes (Text): 05/19/17 13:55 attending note; Patient seen and examined with resident. Patient is a 27-year-old male admitted with right-sided abdominal pain and flank pain. Found to have 3 mm obstructive stone in the right UVJ with hydronephrosis. s/p ureteral stent placement by Dr. jasso today. we will discharge home with pyridium,flomax and tylenol#3. Follow up with Dr. Jasso for stent removal as outpatient. upon discharge patient will follow-up with PMD . 05/19/17 13:59
--- NOTE | 2017-05-26 09:07 | OP ---
DATE: 05/09/2017 UROLOGY OPERATIVE NOTE PREOPERATIVE DIAGNOSES: Urolithiasis, hematuria, hydronephrosis, severe renal colic and a ureteral stone. POSTOPERATIVE DIAGNOSES: Urolithiasis, hematuria, hydronephrosis, severe renal colic and a ureteral stone. PROCEDURE: A cystoscopy, a retrograde pyelogram, a ureteral dilation, ureteroscopy, stone basketing, and insertion of a double J-stent. COMPLICATIONS: There were no complications. SPECIMEN SENT: Stone. ESTIMATED BLOOD LOSS: Less than 100 mL. At the termination of the procedure, the patient has no remaining stones and there were no complications. UROLOGY OPERATIVE FINDINGS: 1. Normal urethra. 2. __00:53___ minimally visually occlusive. 3. The patient has a distal ureteral stone, which were able to remove entirely intact and we in fact placed the stent with dangles. INDICATIONS FOR THE PROCEDURE: See history and physical and the consultation. A very pleasant gentleman, who presented with severe renal colic. After discussing options with the patient, he is here now for the above listed procedure. We discussed that I will do as much as possible. On the side note, he wants to get back to work and he also plays baseball. See the consult note and he will be get back as quickly as possible. So, after discussing the options, __01:32___ as much as possible. We placed the stent to relieve the severe renal colic. But in addition, in this case, we were able to remove the stone as the dilated urethra grossly intact. I used the stone basket to __01:45___ ureteral stone. PROCEDURE IN DETAIL: After obtaining informed consent, the patient was placed on the table. Routine monitor was placed. Time-outs were called to confirm the patient and positioning. We introduced the cystoscope via the urethra. The anterior urethra is normal. No strictures. Verumontanum is minimally visually occlusive. We identified the ureteral orifice. We identified the stone. Actually, we placed one wire up to the kidney. We also performed retrograde pyelogram. Put a second wire in to help dilate the ureter __02:10___ with a rigid ureteroscope, we were able to put the second wire in place, negotiate gently and carefully able to open up the ureter. We identified the stone. It is a fairly distal stone. See the picture, there are multiple pictures taken on the chart. With the help of the inventory assistant, the entire procedure was done with the camera and also with the fluoroscopic imaging. With the help of the inventory assistant, we were able to grab the stone. We can watch the stone being grabbed by the basket and it is all clear intact. __02:43___ without difficulty. We now inspected carefully. Given the nature of the fact there are hydronephrosis and the severe renal colic, we placed double-J stent in with danglcricket, so __02:57___ undergo any other procedure. We emptied the bladder. We secured the sutures in place. The patient tolerated the procedure without complications. Marshall Jasso MD
--- NOTE | 2017-05-26 09:09 | CON ---
DATE: 05/07/2017 UROLOGY CONSULTATION REASON FOR CONSULTATION: Severe renal colic going up to the OR immediately for surgical treatment of his stone, in for physical examination. HISTORY OF PRESENT ILLNESS: A very pleasant gentleman who presents here with severe renal colic. He has a history of renal stone. He is still having ongoing pain and colic. He has hydronephrosis, stones. We discussed the options with the patient. He is now going to go to the OR. PAST MEDICAL AND SURGICAL HISTORY: As listed on the chart. Essentially unremarkable. SOCIAL HISTORY: . He is actually looking forward to getting back to work. On a separate social he also plays baseball. 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 We discussed this as well. He is here actually with his mother. He is currently at the bedside with his family member. Otherwise, no significant social notes are noted. REVIEW OF SYSTEMS: As above. No weight loss, chest pain other than related to this illness. He is in his usual state of health. PHYSICAL EXAMINATION: GENERAL: A well-nourished male, in relatively no apparent distress. VITAL SIGNS: Within normal limits, included in the chart. LUNGS: Clear. HEART: S1, S2. ABDOMEN: Overall soft. No real CVA tenderness. There is no rebound, guarding. No . RECTAL: Deferred are within normal limits. DIAGNOSES: Severe renal colic, hydronephrosis, history of ureteral stone. I discussed with the patient the various options, risks, benefits, treatment alternatives. The plan from Urology standpoint is as follows. We are going to plan for the following. We are going to bring the patient to the operating room. We are going to at least place a stent. I discussed with the patient. He is requesting as much as I can do as possible, so I told him if it is possible, we are going to dilate the ureter and remove the stone clinically, but at least safety out will be the first thing I will maintain and I will at least drain the kidney. The further plans will follow. I explained to the patient risks, benefits, treatment alternatives. I will make an addendum to this note. The operative report, we were actually able to get the stone out in its entirety with a basket and the patient tolerated the procedure well. Marshall Jasso MD
== END 2017-05-10 18:14 | disposition home or self-care (01) ==
LOC: ED 20:16 → ERH 22:37 → 5RSO 23:40
PROVIDERS: ADMIT Internal Medicine; ATTEND Internal Medicine
DX: N13.2 Hydronephrosis with renal and ureteral calculous obstruction (principal); N18.9 Chronic kidney disease, unspecified; Z72.0 Tobacco use; Z87.442 Personal history of urinary calculi; R00.1 Bradycardia, unspecified
CPT/HCPCS: 36415; 52332; 52352; 74176; 80053; 81001; 82550; 83615; 83690; 83735; 84100; 84439; 84443; 84484; 85027; 88300; 93005; 96361; 96374; 96375; 96376; 99283; C1758; C1769; C2625; G0378; J0696; J1170; J1885; J2001; J2250; J2270; J2405; J2704; J3010; J7040; J7120; Q9966

== ENCOUNTER 2017-05-11 06:04 | Emergency (ER) | payer OTHER ==
[2017-05-11 06:04] VITALS: BMI 25.7
[2017-05-11 06:18] VITALS: BP 117/91; PULSE 63; RESP 17; TEMP 97.9; O2SAT 97
--- NOTE | 2017-05-11 06:37 | ED PDOC ---
Arrival/HPI - General Chief Complaint: Medical Clearance Time Seen by Provider: 05/11/17 06:06 - History of Present Illness Narrative History of Present Illness (Text): 05/11/17 06:34 Pt. presents to ED for ureteral stent removal by his urologist.Pt. was admitted days earlier for renal colic.Currently states he feels fine.No complaints offered. Past Medical History - Provider Review Nursing Documentation Reviewed: Yes - Travel History Have you recently traveled outside [place] w/in the past 3 mons?: No - Infectious Disease Hx of Infectious Diseases: None - Tetanus Immunization Tetanus Immunization: Unknown - Past Medical History Past Medical History: No Previous - Cardiac Hx Cardiac Disorders: No - Pulmonary Hx Respiratory Disorders: No - Neurological Hx Neurological Disorder: No - HEENT Hx HEENT Disorder: No - Renal Hx Renal Disorder: Yes Hx Kidney Stones: Yes - Endocrine/Metabolic Hx Endocrine Disorders: No - Hematological/Oncological Hx Blood Disorders: No - Integumentary Hx Dermatological Disorder: No - Musculoskeletal/Rheumatological Hx Musculoskeletal Disorders: No - Gastrointestinal Hx Gastrointestinal Disorders: No - Genitourinary/Gynecological Hx Genitourinary Disorders: No - Psychiatric Hx Psychophysiologic Disorder: No Hx Substance Use: No - Past Surgical History Past Surgical History: No Previous - Anesthesia Hx Anesthesia: No - Suicidal Assessment Feels Threatened In Home Enviroment: No Family/Social History - Physician Review Nursing Documentation Reviewed: Yes Family/Social History: No Known Family HX Smoking Status: Heavy Smoker > 10 Cigarettes Daily Hx Alcohol Use: Yes Hx Substance Use: No Hx Substance Use Treatment: No Allergies/Home Meds Allergies/Adverse Reactions: Allergies No Known Allergies Allergy (Verified 09/23/15 01:53) Review of Systems - Review of Systems Constitutional: Normal Eyes: Normal ENT: Normal Respiratory: Normal Cardiovascular: Normal Gastrointestinal: Normal Genitourinary Male: Normal Musculoskeletal: Normal Skin: Normal Neurological: Normal Endocrine: Normal Hemo/Lymphatic: Normal Psychiatric: Normal Physical Exam Vital Signs Temp Pulse Resp BP Pulse Ox 05/11/17 06:17 97.9 F 63 17 117/91 H 97 Temperature: Afebrile Blood Pressure: Normal Pulse: Regular Respiratory Rate: Normal Appearance: Positive for: Well-Appearing, Non-Toxic, Comfortable Pain Distress: None Mental Status: Positive for: Alert and Oriented X 3 - Systems Exam Head: Present: Atraumatic, Normocephalic Pupils: Present: PERRL Extroacular Muscles: Present: EOMI Respiratory/Chest: Present: Clear to Auscultation, Good Air Exchange. No: Respiratory Distress, Accessory Muscle Use Cardiovascular: Present: Regular Rate and Rhythm, Normal S1, S2. No: Murmurs Abdomen: Present: Normal Bowel Sounds. No: Tenderness, Distention, Peritoneal Signs Neurological: Present: GCS=15, CN II-XII Intact, Speech Normal Medical Decision Making ED Course and Treatment: 05/11/17 06:36 Pt. was seen in ED by .Stent removed by .D/c follow up care instructions to pt. by . Disposition/Present on Arrival - Present on Arrival Any Indicators Present on Arrival: No History of DVT/PE: No History of Uncontrolled Diabetes: No Urinary Catheter: No History Surgical Site Infection Following: None - Disposition Have Diagnosis and Disposition been Completed?: Yes Diagnosis: Encounter for removal of ureteral stent Disposition: HOME/ ROUTINE Disposition Time: 06:37 Patient Plan: Discharge Condition: GOOD Additional Instructions: Follow up care as per . Forms: [facility] (Eritrean)
== END 2017-05-11 06:46 | disposition home or self-care (01) ==
LOC: ED 06:04
DX: Z46.6 Encounter for fitting and adjustment of urinary device (principal)

== ENCOUNTER 2017-05-12 03:04 | Observation (INO) | payer OTHER ==
[2017-05-12 03:33] VITALS: BMI 26.0
[2017-05-12] MEDS ORDERED: Sodium Chloride 0.9% 1,000 ML IV STA (03:35)
[2017-05-12] MEDS ORDERED: Morphine 4 mg/ml ISec IVP STA ×2 (03:35→06:26)
--- NOTE | 2017-05-12 03:44 | ED PDOC ---
Arrival/HPI <CiscoArtem ramon - Last Filed: 05/12/17 06:49> - General Historian: Patient - History of Present Illness Time/Duration: 4-6 hours Symptom Onset: Gradual Symptom Course: Worsening Quality: Burning, Throbbing Activities at Onset: Rest <David Delgado - Last Filed: 05/12/17 07:04> - General Time Seen by Provider: 05/12/17 03:28 - History of Present Illness Narrative History of Present Illness (Text): 05/12/17 03:43 Patient is a 27M with a PMH of kidney stones s/p stone removal. Patient was seen in ED on 05/07 and found to have 3mm obstructing stone in the right ureter. he was admitted and stone was removed by Dr. Javan Jasso on 05/09, stent remained in place at that time. Stent was removed on 05/11. Patient comes to the ED today with a CC of R. flank pain. States it is worse than the pain when he had the first stone. Patient states he is passing blood in the urine but this is expected after the removal of the stent. Denies fevers, chills, N/V. (David Delgado) Past Medical History - Infectious Disease Hx of Infectious Diseases: None - Tetanus Immunization Tetanus Immunization: Unknown - Past Medical History Past Medical History: No Previous - Cardiac Hx Cardiac Disorders: No - Pulmonary Hx Respiratory Disorders: No - Neurological Hx Neurological Disorder: No - HEENT Hx HEENT Disorder: No - Renal Hx Renal Disorder: Yes Hx Kidney Stones: Yes - Endocrine/Metabolic Hx Endocrine Disorders: No - Hematological/Oncological Hx Blood Disorders: No - Integumentary Hx Dermatological Disorder: No - Musculoskeletal/Rheumatological Hx Musculoskeletal Disorders: No - Gastrointestinal Hx Gastrointestinal Disorders: No - Genitourinary/Gynecological Hx Genitourinary Disorders: No - Psychiatric Hx Psychophysiologic Disorder: No Hx Substance Use: No - Past Surgical History Past Surgical History: No Previous - Anesthesia Hx Anesthesia: No Hx Anesthesia Reactions: No Hx Malignant Hyperthermia: No - Suicidal Assessment Feels Threatened In Home Enviroment: No <David Delgado - Last Filed: 05/12/17 07:04> Family/Social History - Physician Review Nursing Documentation Reviewed: Yes Family/Social History: Unknown Family HX Smoking Status: Heavy Smoker > 10 Cigarettes Daily Hx Alcohol Use: Yes Hx Substance Use: No Hx Substance Use Treatment: No <PawansbDavid burnette - Last Filed: 05/12/17 07:04> Allergies/Home Meds <CiscoArtem - Last Filed: 05/12/17 06:49> <PawansbDavid burnette - Last Filed: 05/12/17 07:04> Allergies/Adverse Reactions: Allergies No Known Allergies Allergy (Verified 05/12/17 03:36) Review of Systems - Review of Systems Constitutional: Normal Eyes: Normal ENT: Normal Respiratory: Normal Cardiovascular: Normal Gastrointestinal: Abdominal Pain. absent: Constipation, Diarrhea, Nausea, Vomiting Genitourinary Male: Frequency, Hematuria. absent: Dysuria Musculoskeletal: Normal Skin: Normal Neurological: Normal Endocrine: Normal Hemo/Lymphatic: Normal Psychiatric: Normal <David Delgado Last Filed: 05/12/17 07:04> Physical Exam Vital Signs Reviewed: Yes Temperature: Afebrile Blood Pressure: Normal Pulse: Regular Respiratory Rate: Normal Appearance: Positive for: Well-Appearing, Non-Toxic, Uncomfortable Pain Distress: None Mental Status: Positive for: Alert and Oriented X 3 - Systems Exam Head: Present: Atraumatic, Normocephalic Pupils: Present: PERRL Extroacular Muscles: Present: EOMI Conjunctiva: Present: Normal Mouth: Present: Moist Mucous Membranes Neck: Present: Normal Range of Motion Respiratory/Chest: Present: Clear to Auscultation, Good Air Exchange. No: Respiratory Distress, Accessory Muscle Use Cardiovascular: Present: Regular Rate and Rhythm, Normal S1, S2. No: Murmurs Abdomen: Present: Normal Bowel Sounds. No: Tenderness, Distention, Peritoneal Signs Upper Extremity: Present: Normal Inspection. No: Cyanosis, Edema Lower Extremity: Present: Normal Inspection. No: Edema Neurological: Present: GCS=15, CN II-XII Intact, Speech Normal Skin: Present: Warm, Dry, Normal Color. No: Rashes Psychiatric: Present: Alert, Oriented x 3, Normal Insight, Normal Concentration <AnnabelleDavid burnette - Last Filed: 05/12/17 07:04> Vital Signs Temp Pulse Resp BP Pulse Ox 05/12/17 06:16 98.3 F 48 L 16 129/80 100 05/12/17 03:33 98.1 F 70 18 150/69 97 Medical Decision Making <Artem Peck - Last Filed: 05/12/17 06:49> <David Delgado - Last Filed: 05/12/17 07:04> ED Course and Treatment: Impression: Pt seen and evaluated with medical technologist blood bank. Pt, whose past medical history includes kidney stones s/p right ureteral stent removal on , presented for right flank pain and hematuria. Aware and agree with HPI, clinical findings , plan, and management. Plan: -- IV fluids -- Zofran -- Morphine -- Reassess and disposition 05/12/17 05:[address] Jasso, urologist, who is aware and agrees with plan. CT Abdomen and Pelvis ordered. 05/12/17 06:38 Case was d/w .Pt.with continued pain out of proportion to CT results.Pt. reluctant to be sent home. request pt. admitted to hospitalist service.He will consult. 05/12/17 06:55 Hospitalist paged.Awaiting callback.Case will be endorsed to oncoming ER attending to d/w hospitalist. (Artem Peck) 05/12/17 03:51 pain control with morphine zofran for nausea 1L bolus and continue hydration with NS @ 100 05/12/17 05:[address] Javan Jasso, wants CT abd/pelvis w/o contrast reevaluate and dispo (David Delgado) - RAD Interpretation Radiology Orders: 05/12/17 05:21 ABD & PELVIS W/O PO OR IV CONT [CT] Stat - Medication Orders Current Medication Orders: Sodium Chloride (Sodium Chloride 0.9%) 1,000 mls @ 100 mls/hr IV .Q10H LELO Last Admin: 05/12/17 05:31 Dose: 100 mls/hr eMAR Start Stop Document 05/12/17 05:31 JESSICA (Rec: 05/12/17 05:31 R [id number]) Intravenous Solution Start Date 05/12/17 Start Time 05:15 Discontinued Medications Sodium Chloride (Sodium Chloride 0.9%) 1,000 mls @ 999 mls/hr IV .Q1H1M STA Stop: 05/12/17 04:35 Last Admin: 05/12/17 04:02 Dose: 999 mls/hr eMAR Start Stop Document 05/12/17 04:02 [facility] (Rec: 05/12/17 04:02 [facility] [id number]) Intravenous Solution Start Date 05/12/17 Start Time 03:50 End Date 05/12/17 End time 05:10 Total Infusion Time 80 Morphine Sulfate (Morphine) 4 mg IVP STAT STA Stop: 05/12/17 03:36 Last Admin: 05/12/17 03:54 Dose: 4 mg MAR Pain Assessment Document 05/12/17 03:54 [facility] (Rec: 05/12/17 03:54 [id number] Pain Reassessment Is this a pain reassessment? No Sleep Is patient sleeping during reassessment? No Presence of Pain Presence of Pain Yes Pain Scale Used Pain Scale Used Numeric Location Left, Right or Bilateral Right Upper or Lower Lower Pain Location Body Site Back Description Description Sharp Intensity of Pain at present 10 Acceptable Level of Pain 0 Pain Behavior Irritability Restlessness Aggravating Factors ADL's Alleviating Factors/Management Medication Techniques IVP Administration Document 05/12/17 03:54 [facility] (Rec: 05/12/17 03:54 [id number][facility] Charges for Administration # of IVP Administrations 1 Re-Assess: MAR Pain Assessment Document 05/12/17 04:54 [facility] (Rec: 05/12/17 05:30 [id number]) Pain Reassessment Is this a pain reassessment? Yes Sleep Is patient sleeping during reassessment? Yes Morphine Sulfate (Morphine) 4 mg IVP STAT STA Stop: 05/12/17 06:27 Last Admin: 05/12/17 06:43 Dose: 4 mg MAR Pain Assessment Document 05/12/17 06:43 WAY[facility] (Rec: 05/12/17 06:43 [id number] Pain Reassessment Is this a pain reassessment? Yes Sleep Is patient sleeping during reassessment? No IVP Administration Document 05/12/17 06:43 WAYNE (Rec: 05/12/17 06:43 [id number]) Charges for Administration # of IVP Administrations 1 Ondansetron HCl (Zofran Inj) 4 mg IVP STAT STA Stop: 05/12/17 03:56 Last Admin: 05/12/17 04:03 Dose: IVP Administration Document 05/12/17 04:03 JESSICA (Rec: 05/12/17 04:03 Rebekah [id number]) Charges for Administration # of IVP Administrations 0 - PA / PHARMACY ASSISTANT / Resident Statement / has reviewed & agrees with the documentation as recorded. / has examined the patient and agrees with the treatment plan. <David Delgado - Last Filed: 05/12/17 07:04> Disposition/Present on Arrival - Present on Arrival Any Indicators Present on Arrival: No History of DVT/PE: No History of Uncontrolled Diabetes: No Urinary Catheter: No History of Decub. Ulcer: No History Surgical Site Infection Following: None - Disposition Have Diagnosis and Disposition been Completed?: Yes Disposition Time: 06:42 <Artem Peck - Last Filed: 05/12/17 06:49> - Present on Arrival Any Indicators Present on Arrival: No History of DVT/PE: No History of Uncontrolled Diabetes: No Urinary Catheter: No History of Decub. Ulcer: No History Surgical Site Infection Following: None <David Delgado - Last Filed: 05/12/17 07:04> - Disposition Diagnosis: Renal colic, Intractable pain, History of ureter stent Disposition: HOSPITALIZED Patient Problems: Current Active Problems Problem Status Onset History of ureter stent Acute Intractable pain Acute Renal colic Acute Condition: STABLE
[2017-05-12] MEDS ORDERED: Sodium Chloride 0.9% 1,000 ML IV SCH (03:45)
--- NOTE | 2017-05-12 06:19 | CT ---
EXAM: CT Abdomen and Pelvis Without Intravenous Contrast EXAM DATE/TIME: 05/12/2017 5:21 AM CLINICAL HISTORY: 27 years old, male; Pain; Abdominal pain; Generalized; Prior surgery; Surgery date: 3-7 days post-operative; Additional info: Nephrolithiasis TECHNIQUE: Axial computed tomography images of the abdomen and pelvis without intravenous contrast. All CT scans at this facility use one or more dose reduction techniques, viz.: automated exposure control; ma/kV adjustment per patient size (including targeted exams where dose is matched to indication; i.e. head); or iterative reconstruction technique. Coronal and sagittal reformatted images were created and reviewed. COMPARISON: CT - ABD PELVIS W/O PO OR IV CONT 2017-05-07 21:06 FINDINGS: Lower thorax: No acute findings. ABDOMEN: Liver: Unremarkable. Gallbladder and bile ducts: Unremarkable. No calcified stones. No ductal dilation. Pancreas: Unremarkable. No ductal dilation. Spleen: Unremarkable. No splenomegaly. Adrenals: Unremarkable. No mass. Kidneys and ureters: Bilateral renal calculi again noted. Previously demonstrated calculus in right ureterovesical junction no longer identified. Residual mild distention of right collecting system. No hydronephrosis. Stomach and bowel: Moderate fecal material in the ascending and transverse colon. No dilatation of small or large bowel. No mucosal thickening. Appendix: Normal. PELVIS: Bladder: Unremarkable. No stones. Reproductive: Prostatic calcifications. ABDOMEN and PELVIS: Intraperitoneal space: Unremarkable. No free air. No significant fluid collection. Bones/joints: No acute fracture. Soft tissues: Unremarkable. Vasculature: Unremarkable. No abdominal aortic aneurysm. Lymph nodes: No enlarged lymph nodes. IMPRESSION: 1. Interval passage/retrievable right ureterovesical junction calculus, mild residual distention of the collecting system. 2. Bilateral nephrolithiasis.
[2017-05-12 07:00] LABS: MEAN CELL VOLUME 84.9 fl (80.0-105.0); MEAN CORPUSCULAR HEMOGLOBIN 29.4 pg (25.0-35.0); MEAN CORPUSCULAR HGB CONC 34.6 g/dl (31.0-37.0); RBC 4.77 10^6/uL (3.5-6.1); RED CELL DISTRIBUTION WIDTH 13.6 % (11.5-14.5); WHITE BLOOD COUNT 9.6 10^3/ul (4.5-11.0)
[2017-05-12 07:07] LABS: ALB/GLOB RATIO 1.3 (1.1-1.8); ALT/SGPT 19 U/L (7-56); AST/SGOT 24 U/L (17-59); BLOOD UREA NITROGEN 15 mg/dL (7-21); CALCIUM 9.7 mg/dL (8.4-10.5); GFR AFRICAN-AMERICAN > 60; GFR NON-AFRICAN AMERICAN > 60
[2017-05-12 07:31] VITALS: RESP 18; O2SAT 99
[2017-05-12 08:14] VITALS: BP 124/67; PULSE 54; TEMP 97.8
[2017-05-12] MEDS ORDERED: Potassium Chloride 20 mEq ER Tab PO STA (08:48)
[2017-05-12] MEDS ORDERED: Morphine 2 mg/ml ISec IVP PRN (08:52)
[2017-05-12] MEDS ORDERED: Morphine 4 mg/ml ISec IV PRN (08:55)
--- NOTE | 2017-05-12 15:22 | CP.PCM.HP ---
<Christiano Quintero - Last Filed: 05/12/17 15:13> History of Present Illness - History of Present Illness History of Present Illness: Mr. Malin is a 27 year old male with a past medical history significant for nephrolithiasis who presents with right sided flank pain. Patient was [place] [facility] [place] [facility] where he was treated for right nephrolithiasis with ureteral stent placed by Dr. Jasso and pain control. Patient had stent removed in [facility] 24 hours [facility] but has had continued intractable pain since that time that has not resolved despite Tylenol #3 therapy. He reports that he has had hematuria since his discharge but was told that this was to be expected for several days. He denies any fevers, chills, headache, chest pain, palpitations, SOB, cough, abdominal pain, N/V/D/C, pyuria, dysuria, skin changes or any numbness/tingling/weakness. In the ED, patient had a CT Abdomen/Pelvis which showed interval passage/ retrieval of right UVJ calculus with associated mild residual distention of the collecting system as well as smaller bilateral renal calculi. Patient was treated with morphine for pain control. Urology was consulted and requested that the patient be admitted for further evaluation. 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 Allergies: NKDA Home Medications: As per MAR Present on Admission - Present on Admission Any Indicators Present on Admission: No Review of Systems - Review of Systems Review of Systems: As per HPI, otherwise negative Past Patient History - Infectious Disease Hx of Infectious Diseases: None - Tetanus Immunizations Tetanus Immunization: Unknown - Past Social History Smoking Status: Current Some Days Smoker - CARDIAC Hx Cardiac Disorders: No - PULMONARY Hx Respiratory Disorders: No - NEUROLOGICAL Hx Neurological Disorder: No - HEENT Hx HEENT Problems: No - RENAL Hx Kidney Stones: Yes Other/Comment: 05/09/17 STONE REMOVED. 05/11/17 STENT REMOVED - ENDOCRINE/METABOLIC Hx Endocrine Disorders: No - HEMATOLOGICAL/ONCOLOGICAL Hx Blood Disorders: No - INTEGUMENTARY Hx Dermatological Problems: No - MUSCULOSKELETAL/RHEUMATOLOGICAL Hx Musculoskeletal Disorders: No Hx Falls: No - GASTROINTESTINAL Hx Gastrointestinal Disorders: No - GENITOURINARY/GYNECOLOGICAL Hx Hematuria: Yes (POST STENT REMOVAL) - PSYCHIATRIC Hx Psychophysiologic Disorder: No Hx Substance Use: No - SURGICAL HISTORY Hx Surgeries: Yes (KIDNEY STONE REMOVAL) - ANESTHESIA Hx Anesthesia: No Hx Anesthesia Reactions: No Hx Malignant Hyperthermia: No Meds Home Medications: Home Medication List Medication Instructions Recorded Confirmed Type oxyCODONE/Acetaminophen [Percocet 1 ea PO Q6 PRN #12 tab 05/12/17 Rx 5/325 mg Tab] Allergies/Adverse Reactions: Allergies Allergy/AdvReac Type Severity Reaction Status Date / Time No Known Allergies Allergy Verified 05/12/17 03:36 Physical Exam - Constitutional Appears: Non-toxic, No Acute Distress - Head Exam Head Exam: ATRAUMATIC, NORMOCEPHALIC - Eye Exam Eye Exam: EOMI, Normal appearance Pupil Exam: NORMAL ACCOMODATION, PERRL - ENT Exam ENT Exam: Mucous Membranes Moist, Normal Exam - Neck Exam Neck exam: Positive for: Normal Inspection - Respiratory Exam Respiratory Exam: Clear to Auscultation Bilateral, NORMAL BREATHING PATTERN - Cardiovascular Exam Cardiovascular Exam: REGULAR RHYTHM - GI/Abdominal Exam GI & Abdominal Exam: Normal Bowel Sounds, Soft. absent: Tenderness - Exam Exam: absent: Bladder Distension - Extremities Exam Extremities exam: Positive for: full ROM, normal capillary refill, normal inspection, pedal pulses present. Negative for: calf tenderness, joint swelling , pedal edema, tenderness - Back Exam Back exam: CVA tenderness (R) (+right flank TTP), FULL ROM. absent: CVA tenderness (L), muscle spasm, paraspinal tenderness, rash noted, tenderness, vertebral tenderness - Neurological Exam Neurological exam: Alert, CN II-XII Intact, Normal Gait, Oriented x3, Reflexes Normal - Psychiatric Exam Psychiatric exam: Normal Affect, Normal Mood - Skin Skin Exam: Dry, Intact, Normal Color, Warm Results - Vital Signs Recent Vital Signs: Last Vital Signs Temp 97.8 F 05/12/17 08:03 Pulse 54 L 05/12/17 08:03 Resp 18 05/12/17 08:03 BP 124/67 05/12/17 08:03 Pulse Ox 99 05/12/17 07:30 - Labs Result Diagrams: 05/12/17 03:50 05/12/17 03:50 Assessment & Plan - Assessment and Plan (Free Text) Assessment: 27 year old male with a past medical history significant for nephrolithiasis who presents with right sided flank pain. Patient was discharged from [facility] 48 [place] [facility] where he was treated for right nephrolithiasis with ureteral stent placed by Dr. Jasso and pain control. Patient had stent removed in [facility] 24 hours [facility] but has had continued intractable pain since that time that has not resolved despite Tylenol #3 therapy. Plan: 1. Renal Colic -CT abdomen/pelvis showed interval passage/retrieval of right UVJ calculus with associated mild residual distention of the collecting system as well as smaller bilateral renal calculi -Normal saline at 100mls/hr -Continue home Flomax and Pyridium -Morphine, Tylenol and Toradol as needed for pain control -NPO for possible urological procedure -Urology consulted, all recommendations appreciated GI Prophylaxis: Pepcid DVT Prophylaxis: SCD's Patient seen and case discussed with attending, Dr. Bethany Shepherd. - Date & Time Date: 05/12/17 Time: 15:23 <Bethany Shepherd - Last Filed: 05/12/17 16:58> Results - Vital Signs Recent Vital Signs: Last Vital Signs Temp 97.8 F 05/12/17 08:03 Pulse 54 L 05/12/17 08:03 Resp 18 05/12/17 08:03 BP 124/67 05/12/17 08:03 Pulse Ox 99 05/12/17 07:30 - Labs Result Diagrams: 05/12/17 03:50 05/12/17 03:50 Attending/Attestation - Attestation I have personally seen and examined this patient.: Yes I have fully participated in the care of the patient.: Yes I have reviewed all pertinent clinical information: Yes Notes (Text): I have seen and examined the patient at bedside. Agree with the above note with the following additions/ exceptions: Briefly this is 27 year old male with a history of nephrolithiasis, tobacco use, marijuana use, alcohol use who came for evaluation of right sided flank pain. Patient recently passed a stone and stent was removed yesterday by Dr Jasso. Patient was admitted for pain management. He feels fine now and wants to be discharged. Urology consult appreciated. Patient will be sent home on Percocet. Upon discharge patient will follow up with Dr Jasso and [facility] [place]. Dr Bethany Shepherd
--- NOTE | 2017-05-12 15:31 | CP.PCM.DIS ---
<Christiano Quintero - Last Filed: 05/12/17 15:27> Provider - Provider Date of Admission: 05/12/17 06:42 Attending physician: Bethany Shepherd MD Primary care physician: Dr. Mcadams Consults: Urology: Dr. Jsaso Time Spent in preparation of Discharge (in minutes): 39 Diagnosis - Discharge Diagnosis (1) Renal colic Status: Acute Hospital Course - Lab Results Lab Results: Most Recent Lab Values WBC 9.6 10^3/ul (4.5-11.0) 05/12/17 03:50 RBC 4.77 10^6/uL (3.5-6.1) 05/12/17 03:50 Hgb 14.0 g/dL (14.0-18.0) 05/12/17 03:50 Hct 40.5 % (42.0-52.0) L 05/12/17 03:50 MCV 84.9 fl (80.0-105.0) 05/12/17 03:50 MCH 29.4 pg (25.0-35.0) 05/12/17 03:50 MCHC 34.6 g/dl (31.0-37.0) 05/12/17 03:50 RDW 13.6 % (11.5-14.5) 05/12/17 03:50 Plt Count 312 10^3/uL (120.0-450.0) 05/12/17 03:50 MPV 9.0 fl (7.0-11.0) 05/12/17 03:50 Sodium 141 mmol/L (132-148) 05/12/17 03:50 Potassium 3.5 mmol/L (3.6-5.0) L 05/12/17 03:50 Chloride 101 mmol/L (98-107) 05/12/17 03:50 Carbon Dioxide 29 mmol/L (21-33) 05/12/17 03:50 Anion Gap 14 (10-20) 05/12/17 03:50 BUN 15 mg/dL (7-21) 05/12/17 03:50 Creatinine 1.0 mg/dl (0.8-1.5) 05/12/17 03:50 Est GFR ( Amer) > 60 05/12/17 03:50 Est GFR (Non-Af Amer) > 60 05/12/17 03:50 Random Glucose 84 mg/dL (70-110) 05/12/17 03:50 Calcium 9.7 mg/dL (8.4-10.5) 05/12/17 03:50 Magnesium 2.1 mg/dL (1.7-2.2) 05/12/17 04:00 Total Bilirubin 0.8 mg/dL (0.2-1.3) 05/12/17 03:50 AST 24 U/L (17-59) 05/12/17 03:50 ALT 19 U/L (7-56) 05/12/17 03:50 Alkaline Phosphatase 69 U/L (38-126) 05/12/17 03:50 Total Protein 7.1 g/dL (5.8-8.3) 05/12/17 03:50 Albumin 4.0 g/dL (3.0-4.8) 05/12/17 03:50 Globulin 3.1 gm/dL 05/12/17 03:50 Albumin/Globulin Ratio 1.3 (1.1-1.8) 05/12/17 03:50 - Hospital Course Hospital Course: 27 year old male with a past medical history significant for nephrolithiasis who presents with right sided flank pain. [place] [facility] [place] [facility] where he was treated for right nephrolithiasis with ureteral stent placed by Dr. Jasso and pain control. Patient had stent removed [place] [facility] [place] 24 hours [facility] but has had continued intractable pain since that time that has not resolved despite Tylenol #3 therapy. In the ED, patient had a CT Abdomen/Pelvis which showed interval passage/retrieval of right UVJ calculus with associated mild residual distention of the collecting system as well as smaller bilateral renal calculi. Patient was treated with morphine for pain control. Urology was consulted and requested that the patient be admitted for further evaluation. Patient was started on Morphine, Tylenol and Toradol as needed for pain control. Normal saline at 100mls/hr and home Flomax and Pyridium were started. Urology was consulted and recommended patient be discharged with outpatient follow up and Percocet for pain control. Patient was discharged with these instructions and medications on 05/12/17. - Date & Time of H&P Date of H&P: 05/12/17 Time of H&P: 15:13 Discharge Exam - Head Exam Head Exam: ATRAUMATIC, NORMOCEPHALIC - Eye Exam Eye Exam: EOMI, Normal appearance, PERRL Pupil Exam: NORMAL ACCOMODATION, PERRL - ENT Exam ENT Exam: Mucous Membranes Moist, Normal Exam - Respiratory Exam Respiratory Exam: Clear to PA & Lateral, NORMAL BREATHING PATTERN, UNREMARKABLE - Cardiovascular Exam Cardiovascular Exam: REGULAR RHYTHM - GI/Abdominal Exam GI & Abdominal Exam: Normal Bowel Sounds, Unremarkable - Exam Exam: absent: Bladder Distension - Extremities Exam Extremities exam: full ROM, normal capillary refill, normal inspection, pedal pulses present - Back Exam Back exam: absent: CVA tenderness (L), CVA tenderness (R) - Neurological Exam Neurological exam: Alert, CN II-XII Intact, Normal Gait, Oriented x3, Reflexes Normal - Psychiatric Exam Psychiatric exam: Normal Affect, Normal Mood - Skin Skin Exam: Dry, Intact, Normal Color, Warm Discharge Plan - Discharge Medications Prescriptions: oxyCODONE/Acetaminophen [Percocet 5/325 mg Tab] 1 ea PO Q6 PRN #12 tab PRN Reason: Pain, Severe (8-10) - Follow Up Plan Condition: STABLE Disposition: HOME/ ROUTINE Instructions: Renal Colic (DC) Additional Instructions: Please follow up with Dr. Jasso within one week for post hospitalization follow up Please take all medications as prescribed Please do not drive or operate heavy machinery while on Percocet If your symptoms worsen or persist, please seek emergency medical attention Referrals: Darci Jasso MD [Staff Provider] - <Bethany Shepherd - Last Filed: 05/12/17 17:06> Provider - Provider Date of Admission: 05/12/17 06:42 Attending physician: Bethany Shepherd MD Hospital Course - Lab Results Lab Results: Most Recent Lab Values WBC 9.6 10^3/ul (4.5-11.0) 05/12/17 03:50 RBC 4.77 10^6/uL (3.5-6.1) 05/12/17 03:50 Hgb 14.0 g/dL (14.0-18.0) 05/12/17 03:50 Hct 40.5 % (42.0-52.0) L 05/12/17 03:50 MCV 84.9 fl (80.0-105.0) 05/12/17 03:50 MCH 29.4 pg (25.0-35.0) 05/12/17 03:50 MCHC 34.6 g/dl (31.0-37.0) 05/12/17 03:50 RDW 13.6 % (11.5-14.5) 05/12/17 03:50 Plt Count 312 10^3/uL (120.0-450.0) 05/12/17 03:50 MPV 9.0 fl (7.0-11.0) 05/12/17 03:50 Sodium 141 mmol/L (132-148) 05/12/17 03:50 Potassium 3.5 mmol/L (3.6-5.0) L 05/12/17 03:50 Chloride 101 mmol/L (98-107) 05/12/17 03:50 Carbon Dioxide 29 mmol/L (21-33) 05/12/17 03:50 Anion Gap 14 (10-20) 05/12/17 03:50 BUN 15 mg/dL (7-21) 05/12/17 03:50 Creatinine 1.0 mg/dl (0.8-1.5) 05/12/17 03:50 Est GFR ( Amer) > 60 05/12/17 03:50 Est GFR (Non-Af Amer) > 60 05/12/17 03:50 Random Glucose 84 mg/dL (70-110) 05/12/17 03:50 Calcium 9.7 mg/dL (8.4-10.5) 05/12/17 03:50 Magnesium 2.1 mg/dL (1.7-2.2) 05/12/17 04:00 Total Bilirubin 0.8 mg/dL (0.2-1.3) 05/12/17 03:50 AST 24 U/L (17-59) 05/12/17 03:50 ALT 19 U/L (7-56) 05/12/17 03:50 Alkaline Phosphatase 69 U/L (38-126) 05/12/17 03:50 Total Protein 7.1 g/dL (5.8-8.3) 05/12/17 03:50 Albumin 4.0 g/dL (3.0-4.8) 05/12/17 03:50 Globulin 3.1 gm/dL 05/12/17 03:50 Albumin/Globulin Ratio 1.3 (1.1-1.8) 05/12/17 03:50 Attending/Attestation - Attestation I have personally seen and examined this patient.: Yes I have fully participated in the care of the patient.: Yes I have reviewed all pertinent clinical information, including history, physical exam and plan: Yes Notes (Text): I have seen and examined the patient at bedside. Agree with the above note with the following additions/ exceptions: Briefly this is 27 year old male with a history of nephrolithiasis, tobacco use, marijuana use, alcohol use who came for evaluation of right sided flank pain. Patient recently passed a stone and stent was removed yesterday by Dr Jasso in ED. Patient was admitted for pain management. He feels fine now and wants to be discharged. Urology consult appreciated. Patient will be sent home on Percocet. Counselling provided regarding marijuana and tobacco use. Upon discharge patient will follow up with Dr Jasso and [facility] clinic. Dr Bethany Shepherd
== END 2017-05-12 16:40 | disposition home or self-care (01) ==
LOC: ED 03:04 → ERH 06:42 → 3RNO 07:55
PROVIDERS: ADMIT Internal Medicine; ATTEND Hospitalist
DX: N20.2 Calculus of kidney with calculus of ureter (principal); F17.210 Nicotine dependence, cigarettes, uncomplicated; F12.90 Cannabis use, unspecified, uncomplicated
CPT/HCPCS: 74176; 80053; 83735; 85027; 96361; 96374; 96376; 99285; G0378; J2270; J2405; J7040